=== PATIENT | male | born 1995 | race Caucasian/White ===

== ENCOUNTER 2018-05-09 02:40 | Emergency (ER) | payer BC, OTHER ==
[2018-05-09] MEDS ORDERED: Sodium Chloride 0.9% 1,000 ML IV ONE (03:12)
[2018-05-09] MEDS ORDERED: Ketorolac 30 MG/ML SDV IVPUSH ONE (03:12)
[2018-05-09] MEDS ORDERED: Sodium Chloride 0.9% 2.5 ML Syringe FLUSH PRN (03:12)
[2018-05-09] MEDS ORDERED: Ondansetron 4 MG/2 ML SDV IVPUSH ONE (03:12)
[2018-05-09] MEDS ORDERED: Morphine 2 MG/ML Syringe IVPUSH ONE (03:12)
[2018-05-09] MEDS ORDERED: Sodium Chloride 0.9% 10 ML Syringe FLUSH PRN (03:12)
--- NOTE | 2018-05-09 03:16 | EDM.PDOC ---
ED HPI GENERAL MEDICAL PROBLEM - General Chief Complaint: Flank Pain Stated Complaint: POSSIBLE APPENDICITIS Time Seen by Provider: 05/09/18 03:02 - History of Present Illness INITIAL COMMENTS - FREE TEXT/NARRATIVE: HISTORY AND PHYSICAL: History of present illness: The patient is a 23-year-old male with no significant GI or history and no abdominal surgical history who presents with sudden onset of right flank pain associated with nausea and vomiting about one hour ago. The patient not take anything at home for the pain and has not had any recent illnesses such as fever chills chest pain cough runny nose sore throat abdominal issues or diarrhea. He has no urinary complaints such as hematuria dysuria or frequency and has no testicular pain or swelling. He says the pain does not radiate and there is no right upper or right lower abdominal pain. He says the pain is deep and stabbing. He has never had anything like this before and he denies any recent trauma. He does not feel short of breath. The patient says the flank pain is not midline and his back nor does it radiate to his legs Review of systems: As per history of present illness and below otherwise all systems reviewed and negative. Past medical history: As per history of present illness and as reviewed below otherwise noncontributory. Surgical history: As per history of present illness and as reviewed below otherwise noncontributory. Social history: No reported history of drug or alcohol abuse. Family history: As per history of present illness and as reviewed below otherwise noncontributory. Physical exam: General: Well-developed well-nourished overweight man who is nontoxic and looks uncomfortable in the room. He seems restless and is holding his right side. Vital signs are noted by me HEENT: Atraumatic, normocephalic, pupils reactive, negative for conjunctival pallor or scleral icterus, mucous membranes moist, throat clear, neck supple, nontender, trachea midline. Lungs: Clear to auscultation, breath sounds equal bilaterally, chest nontender. No wheezing stridor or work of breathing Heart: S1S2, regular rate and rhythm no overt murmurs Abdomen: Soft, nondistended, nontender. I cannot reproduce the pain on palpation either in the abdomen or the flank and he has no specific right lower or right upper quadrant tenderness. Bowel sounds are hypoactive Negative for masses or hepatosplenomegaly. Negative for costovertebral tenderness. When I touch the skin of the right flank area the patient jumps in pain and is very hypersensitive. There are no rashes. Pelvis: Stable nontender. Genitourinary: Deferred. Rectal: Deferred. Extremities: Atraumatic, negative for cords or calf pain. Neurovascular unremarkable. Neuro: Awake, alert, oriented. Cranial nerves II through XII unremarkable. Cerebellum unremarkable. Motor and sensory unremarkable throughout. Exam nonfocal. Diagnostics: CBC CMP amylase lipase UA urine culture CT scan of the abdomen and pelvis Therapeutics: IV fluids Zofran Toradol morphine Flomax, urine strainers Patient feels significantly better and is aware of testing results. We will give him urine strainers as well as a dose of Flomax and meds for home including [place] and Zofran. The patient is aware that he is in the process of passing a small kidney stone but he is also aware that he has to more in his kidney that may pass at any time and he is advised to follow-up with Dr. Arreola. UA does have some bacteria and white cells so I will send a urine culture and give the patient a prescription for Cipro Impression: Right flank pain/right UVJ stone 1-2 mm, kidney stones Definitive disposition and diagnosis as appropriate pending reevaluation and review of above. right flank Pain Score (Numeric/FACES): 8 - Related Data Allergies Allergy/AdvReac Type Severity Reaction Status Date / Time Penicillins Allergy Cannot Verified 05/09/18 03:29 Remember Home Meds: Home Meds . [No Known Home Meds] 03/02/18 [History] Past Medical History - Past Health History Medical/Surgical History: Denies Medical/Surgical History Social & Family History - Family History Family Medical History: Noncontributory ED ROS GENERAL - Review of Systems Review Of Systems: ROS reveals no pertinent complaints other than HPI. ED EXAM, GENERAL - Physical Exam Exam: See Below (See dictation) Course - Vital Signs Last Recorded V/S: Last Vital Signs Temp 36.1 C 05/09/18 02:40 Pulse 84 05/09/18 02:40 Resp 20 05/09/18 02:40 BP 146/82 H 05/09/18 02:40 Pulse Ox 100 05/09/18 02:40 - Orders/Labs/Meds Orders: Active Orders 24 hr Category Date Time Status Communication Order [RC] STAT Care 05/09/18 04:55 Active Abdomen Pelvis wo Cont [CT] Stat Exams 05/09/18 03:12 Ordered CULTURE URINE [RM] Stat Lab 05/09/18 04:45 Received Sodium Chloride 0.9% [Saline Flush] Med 05/09/18 03:12 Active 10 ml FLUSH ASDIRECTED PRN Sodium Chloride 0.9% [Saline Flush] Med 05/09/18 03:12 Active 2.5 ml FLUSH ASDIRECTED PRN Saline Lock Insert [OM.PC] Stat Oth 05/09/18 03:11 Ordered Medication Orders Sodium Chloride (Saline Flush) 10 ml FLUSH ASDIRECTED PRN PRN Reason: Keep Vein Open Sodium Chloride (Saline Flush) 2.5 ml FLUSH ASDIRECTED PRN PRN Reason: Keep Vein Open Labs: Laboratory Tests 05/09/18 05/09/18 05/09/18 Range/Units 03:00 03:00 04:45 WBC 10.19 (4.0-11.0) K/uL RBC 5.07 (4.50-5.90) M/uL Hgb 15.2 (13.0-17.0) g/dL Hct 44.7 (38.0-50.0) % MCV 88.2 (80.0-98.0) fL MCH 30.0 (27.0-32.0) pg MCHC 34.0 (31.0-37.0) g/dL RDW Std Deviation 42.8 (28.0-62.0) fl RDW Coeff of Robin 13 (11.0-15.0) % Plt Count 245 (150-400) K/uL MPV 10.20 (7.40-12.00) fL Neut % (Auto) 51.4 (48.0-80.0) % Lymph % (Auto) 34.8 (16.0-40.0) % Chambers % (Auto) 10.5 (0.0-15.0) % Eos % (Auto) 2.9 (0.0-7.0) % Baso % (Auto) 0.4 (0.0-1.5) % Neut # (Auto) 5.2 (1.4-5.7) K/uL Lymph # (Auto) 3.6 H (0.6-2.4) K/uL Chambers # (Auto) 1.1 H (0.0-0.8) K/uL Eos # (Auto) 0.3 (0.0-0.7) K/uL Baso # (Auto) 0.0 (0.0-0.1) K/uL Nucleated RBC % 0.0 /100WBC Nucleated RBCs # 0 K/uL Sodium 141 (136-148) mmol/L Potassium 3.8 (3.5-5.1) mmol/L Chloride 105 (98-107) mmol/L Carbon Dioxide 29.9 (21.0-32.0) mmol/L BUN 20 H (7.0-18.0) mg/dL Creatinine 1.0 (0.8-1.3) mg/dL Est Cr Clr Drug Dosing TNP Estimated GFR (MDRD) > 60.0 ml/min Glucose 119 H (74-106) mg/dL Calcium 9.5 (8.5-10.1) mg/dL Total Bilirubin 0.3 (0.2-1.0) mg/dL AST 21 (15-37) IU/L ALT 49 (14-63) IU/L Alkaline Phosphatase 87 (46-116) U/L Total Protein 7.7 (6.4-8.2) g/dL Albumin 3.7 (3.4-5.0) g/dL Globulin 4.0 (2.6-4.0) g/dL Albumin/Globulin Ratio 0.9 (0.9-1.6) Amylase 63 (25-115) U/L Lipase 138 (73-393) U/L Urine Color DARK YELLOW Urine Appearance SLT CLOUDY Urine pH 6.0 (5.0-8.0) Ur Specific [place] >= 1.030 (1.001-1.035) Urine Protein NEGATIVE (NEGATIVE) mg/dL Urine Glucose (UA) NEGATIVE (NEGATIVE) mg/dL Urine Ketones NEGATIVE (NEGATIVE) mg/dL Urine Occult Blood LARGE H (NEGATIVE) Urine Nitrite NEGATIVE (NEGATIVE) Urine Bilirubin SMALL H (NEGATIVE) Urine Ictotest NEGATIVE Urine Urobilinogen 0.2 (<2.0) EU/dL Ur Leukocyte Esterase NEGATIVE (NEGATIVE) Urine RBC >100 (0-2/HPF) Urine WBC 4-6 (0-5/HPF) Ur Epithelial Cells RARE (NONE-FEW) Urine Bacteria 1+ H (NEGATIVE) Meds: Medications Generic Name Dose Route Start Last Admin Trade Name Freq PRN Reason Stop Dose Admin Sodium Chloride 10 ml 05/09/18 03:12 Saline Flush FLUSH ASDIRECTED PRN Keep Vein Open Sodium Chloride 2.5 ml 05/09/18 03:12 Saline Flush FLUSH ASDIRECTED PRN Keep Vein Open Discontinued Medications Generic Name Dose Route Start Last Admin Trade Name Freq PRN Reason Stop Dose Admin Sodium Chloride 1,000 mls @ 999 mls/hr 05/09/18 03:12 05/09/18 03:28 Normal Saline IV 05/09/18 04:12 999 mls/hr STAT ONE Administration Ketorolac Tromethamine 30 mg 05/09/18 03:12 05/09/18 03:30 Toradol IVPUSH 05/09/18 03:13 30 mg ONETIME ONE Administration Morphine Sulfate 4 mg 05/09/18 03:12 05/09/18 03:31 Morphine IVPUSH 05/09/18 03:13 4 mg ONETIME ONE Administration Ondansetron HCl 4 mg 05/09/18 03:12 05/09/18 03:29 Zofran IVPUSH 05/09/18 03:13 4 mg ONETIME ONE Administration Tamsulosin HCl 0.4 mg 05/09/18 04:55 05/09/18 05:03 Flomax PO 05/09/18 04:56 0.4 mg ONETIME ONE Administration Departure - Departure Time of Disposition: 05:08 Disposition: Home, Self-Care 01 Condition: Good Clinical Impression: Ureterolithiasis, Kidney stone - Discharge Information Referrals: PCP,None [Primary Care Provider] - Forms: ED Department Discharge Additional Instructions: The following information is given to patients seen in the emergency department who are being discharged to home. This information is to outline your options for follow-up care. We provide all patients seen in our emergency department with a follow-up referral. The need for follow-up, as well as the timing and circumstances, are variable depending upon the specifics of your emergency department visit. If you don't have a primary care physician on staff, we will provide you with a referral. We always advise you to contact your personal physician following an emergency department visit to inform them of the circumstance of the visit and for follow-up with them and/or the need for any referrals to a consulting specialist. The emergency department will also refer you to a specialist when appropriate. This referral assures that you have the opportunity for followup care with a specialist. All of these measure are taken in an effort to provide you with optimal care, which includes your followup. Under all circumstances we always encourage you to contact your private physician who remains a resource for coordinating your care. When calling for followup care, please make the office aware that this follow-up is from your recent emergency room visit. If for any reason you are refused follow-up, please contact the [facility] emergency department at and ask to speak to the emergency department charge nurse. [facility] [address] [place] [address] [phone] Push hydration and avoid caffeinated products. Please take all medications as prescribed. Please strain your urine looking for your kidney stone as we discussed and please schedule an appointment with our urologist Dr. Arreola next week for reevaluation and further care. Return to ER as needed and as discussed You have been given Zofran Percocet Flomax and ciprofloxacin via [facility] Med[facility] - My Orders Last 24 Hours: My Active Orders 05/09/18 03:11 Saline Lock Insert [OM.PC] Stat 05/09/18 03:12 Abdomen Pelvis wo Cont [CT] Stat Sodium Chloride 0.9% [Saline Flush] 10 ml FLUSH ASDIRECTED PRN Sodium Chloride 0.9% [Saline Flush] 2.5 ml FLUSH ASDIRECTED PRN 05/09/18 04:45 CULTURE URINE [RM] Stat 05/09/18 04:55 Communication Order [RC] STAT - Assessment/Plan Last 24 Hours: My Active Orders 05/09/18 03:11 Saline Lock Insert [OM.PC] Stat 05/09/18 03:12 Abdomen Pelvis wo Cont [CT] Stat Sodium Chloride 0.9% [Saline Flush] 10 ml FLUSH ASDIRECTED PRN Sodium Chloride 0.9% [Saline Flush] 2.5 ml FLUSH ASDIRECTED PRN 05/09/18 04:45 CULTURE URINE [RM] Stat 05/09/18 04:55 Communication Order [RC] STAT
[2018-05-09 03:36] LABS: CHLORIDE,CL 105 mmol/L (98-107); SODIUM,NA 141 mmol/L (136-148)
[2018-05-09] MEDS ORDERED: Tamsulosin 0.4 MG Cap.ER PO ONE (04:55)
--- NOTE | 2018-05-10 19:24 | CT ---
EXAM DATE: 05/09/18 PATIENT'S AGE: 23 Patient: ELYSSA LAGUNA Facility: [place], [place] Site . Site : 1995 Study: CT Abdomen/Pelvis -05/09/2018 3:50:14 AM Ordering Physician: Danielito Metz Final Report: INDICATION: Right flank pain. TECHNIQUE: CT Abdomen and pelvis without i.v. contrast. Coronal and sagittal reformats were obtained. COMPARISON: None FINDINGS: Lower chest: Unremarkable. Liver: Unremarkable. Spleen: Unremarkable. Pancreas: Unremarkable. Gallbladder: Unremarkable. Kidney: There is a 1-2 mm stone seen in the right ureterovesicular junction with mild right hydroureter and mild right renal pelvicaliectasis. There are 2 punctate 1 mm stones present in the midzone of the right kidney. Left kidney is unremarkable in appearance. The appendix is not visualized. Adrenal: Unremarkable. Bowel: Unremarkable. Vascular: Unremarkable. Lymph: Unremarkable. Peritoneum: Unremarkable. No pneumoperitoneum is seen. No significant ascites is noted. Pelvis: Unremarkable. Soft tissue: Unremarkable. Bone: Unremarkable for age. IMPRESSION: 1. There is a 1-2 mm stone seen in the right ureterovesicular junction with mild right hydroureter and mild right renal pelvicaliectasis. Dictated by Oleg Lee MD @ 05/09/2018 4:47:36 AM Please note that all CT scans at this facility use dose modulation, iterative reconstruction, and/or weight-based dosing when appropriate to reduce radiation dose to as low as reasonably achievable. Dictated by: Oleg Lee MD @ 05/09/2018 04:47:39 (Electronic Signature) Report Signed by Proxy. [facility]
== END 2018-05-09 05:30 | disposition home or self-care (01) ==
LOC: MW.ED 02:40
DX: N20.2 Calculus of kidney with calculus of ureter (principal); N13.4 Hydroureter; Z88.0 Allergy status to penicillin
CPT/HCPCS: 74176; 80053; 81001; 82150; 83690; 85025; 87086; 96361; 96374; 96375; 99284; A9270; J1885; J2270; J2405; J7040; 99283

== ENCOUNTER 2018-06-12 18:22 | Emergency (ER) | payer BC ==
--- NOTE | 2018-06-12 18:33 | EDM.PDOC ---
ED HPI GENERAL MEDICAL PROBLEM - General Chief Complaint: General Stated Complaint: COUGH/FEELING SICK Time Seen by Provider: 06/12/18 18:24 Source of Information: Reports: Patient History Limitations: Reports: No Limitations - History of Present Illness INITIAL COMMENTS - FREE TEXT/NARRATIVE: HISTORY AND PHYSICAL: History of present illness: Patient is a 23-year-old male who presents to the emergency room today with complaints of cough, subjective fevers, and body aches 4 days. He states he is eating and drinking appropriately although has a decreased appetite. He denies any chest pain, shortness of breath, abdominal pain, nausea, vomiting, diarrhea or constipation. He has an occasional smoker. Has not received an influenza vaccine this year. Review of systems: As per history of present illness and below otherwise all systems reviewed and negative. Past medical history: As per history of present illness and as reviewed below otherwise noncontributory. Surgical history: As per history of present illness and as reviewed below otherwise noncontributory. Social history: See social history for further information Family history: As per history of present illness and as reviewed below otherwise noncontributory. Physical exam: General: Well-developed and well-nourished 23-year-old male. Alert and oriented. Nontoxic appearing and in no acute distress HEENT: Atraumatic, normocephalic, pupils equal and reactive bilaterally, negative for conjunctival pallor or scleral icterus, mucous membranes moist, TMs normal bilaterally, throat mild erythematous without exudate or soft tissue swelling, neck supple, nontender, trachea midline. No drooling or trismus noted. No meningeal signs. No hot potato voice noted. Lungs: Diminished throughout auscultation, breath sounds equal bilaterally, chest nontender. Heart: S1S2, regular rate and rhythm without overt murmur Abdomen: Soft, nondistended, nontender. Negative for masses or hepatosplenomegaly. Negative for costovertebral tenderness. Pelvis: Stable nontender. Genitourinary: Deferred. Rectal: Deferred. Skin: Intact, warm, dry. No lesions or rashes noted. Extremities: Atraumatic, negative for cords or calf pain. Neurovascular unremarkable. Neuro: Awake, alert, oriented. Cranial nerves II through XII unremarkable. Cerebellum unremarkable. Motor and sensory unremarkable throughout. Exam nonfocal. Notes: Influenza screening is positive. Patient is out of the window for Tamiflu. Supportive care measures were reviewed and discussed. Encouraged him to follow standard contact precautions while around others. Voices understanding and is agreeable to plan of care. Denies any further questions or concerns at this time. Diagnostics: Influenza, chest x-ray Therapeutics: None Prescription: Phenergan with codeine Impression: Influenza Plan: 1. Standard contact precautions (covering mouth while coughing, avoid sharing drinking cups and eating utensils). Please make sure you're doing good handwashing as this is contagious. 2. Encourage small frequent sips of fluids to prevent dehydration. 3. Supportive care measures such as Tylenol and/or ibuprofen for pain and fever management. 4. 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 Return to the ED as needed and as discussed. Definitive disposition and diagnosis as appropriate pending reevaluation and review of above. - Related Data Allergies Allergy/AdvReac Type Severity Reaction Status Date / Time Penicillins Allergy Cannot Verified 05/09/18 03:29 Remember Home Meds: Home Meds . [No Known Home Meds] 03/02/18 [History] Past Medical History - Past Health History Medical/Surgical History: Denies Medical/Surgical History Social & Family History - Family History Family Medical History: Noncontributory - Tobacco Use Smoking Status *Q: Light Tobacco Smoker Years of Tobacco use: 4 Packs/Tins Daily: 0.1 - Recreational Drug Use Recreational Drug Use: No ED ROS GENERAL - Review of Systems Review Of Systems: ROS reveals no pertinent complaints other than HPI. ED EXAM, GENERAL - Physical Exam Exam: See Below (See dictation) Course - Vital Signs Last Recorded V/S: Last Vital Signs Temp 98.4 F 06/12/18 18:30 Pulse 97 06/12/18 18:30 Resp 18 06/12/18 18:30 BP 165/79 H 06/12/18 18:30 Pulse Ox 95 06/12/18 18:30 - Orders/Labs/Meds Orders: Active Orders 24 hr Category Date Time Status Chest 2V [CR] Stat Exams 06/12/18 18:34 Taken Departure - Departure Time of Disposition: 19:14 Disposition: Home, Self-Care 01 Clinical Impression: Influenza A - Discharge Information Instructions: Influenza, Adult, [id number] Referrals: PCP,None [Primary Care Provider] - Forms: ED Department Discharge Additional Instructions: The following information is given to patients seen in the emergency department who are being discharged to home. This information is to outline your options for follow-up care. We provide all patients seen in our emergency department with a follow-up referral. The need for follow-up, as well as the timing and circumstances, are variable depending upon the specifics of your emergency department visit. If you don't have a primary care physician on staff, we will provide you with a referral. We always advise you to contact your personal physician following an emergency department visit to inform them of the circumstance of the visit and for follow-up with them and/or the need for any referrals to a consulting specialist. The emergency department will also refer you to a specialist when appropriate. This referral assures that you have the opportunity for follow-up care with a specialist. All of these measure are taken in an effort to provide you with optimal care, which includes your follow-up. Under all circumstances we always encourage you to contact your private physician who remains a resource for coordinating your care. When calling for follow-up care, please make the office aware that this follow-up is from your recent emergency room visit. If for any reason you are refused follow-up, please contact the [facility] Emergency Department at and asked to speak to the emergency department charge nurse. [facility] [address] [place] [id number] [place] [address] 1. Standard contact precautions (covering mouth while coughing, avoid sharing drinking cups and eating utensils). Please make sure you're doing good handwashing as this is contagious. 2. Encourage small frequent sips of fluids to prevent dehydration. 3. Supportive care measures such as Tylenol and/or ibuprofen for pain and fever management. 4. 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 Return to the ED as needed and as discussed. - My Orders Last 24 Hours: My Active Orders 02/16/19 18:34 Chest 2V [CR] Stat - Assessment/Plan Last 24 Hours: My Active Orders 06/12/18 18:34 Chest 2V [CR] Stat
--- NOTE | 2018-06-12 20:18 | CR ---
INDICATION: Pain, shortness of breath TECHNIQUE: Chest 2 views. COMPARISON: None FINDINGS: Cardiovascular and mediastinum: Heart size and vasculature are normal in caliber and appearance. Mediastinum is within normal limits. Lungs and pleural spaces: Lungs are clear. No sign of infiltrate or mass. No sign of pleural effusion. No pneumothorax. Bones and soft tissues: No significant findings. IMPRESSION: Unremarkable chest. Dictated by Dimitris Gordon MD @ Jun 12 2018 8:15PM Signed by Dr. Dimitris Gordon @ Jun 12 2018 8:16PM
== END 2018-06-12 19:25 | disposition home or self-care (01) ==
LOC: MW.ED 18:22
DX: J10.1 Influenza due to other identified influenza virus with other respiratory manifestations (principal); F17.210 Nicotine dependence, cigarettes, uncomplicated; Z88.0 Allergy status to penicillin
CPT/HCPCS: 71046; 71046-26; 87804; 99283

== ENCOUNTER 2024-01-19 09:23 | Emergency (ER) | payer SELFPAY ==
[2024-01-19] MEDS ORDERED: Sodium Chloride 0.9% 10 ML Syringe FLUSH PRN (09:28)
[2024-01-19] MEDS ORDERED: Sodium Chloride 0.9% 2.5 ML Syringe FLUSH PRN (09:28)
[2024-01-19 09:45] LABS: BASOPHILS ABSOLUTE AUTO 0.08 K/uL (0.00-0.20); BASOPHILS PERCENT AUTO 0.8 % (0.0-1.0); EOSINOPHILS ABSOLUTE AUTO 0.16 K/uL (0.00-0.45); EOSINOPHILS PERCENT AUTO 1.7 % (0.0-6.0); HEMATOCRIT 48.4 % (42.0-52.0); HEMOGLOBIN 16.6 g/dL (14.0-18.0); IMMATURE GRAN ABSOLUTE AUTO 0.04 K/uL (0.00-0.05); IMMATURE GRAN PERCENT AUTO 0.4 % (0.0-0.4); LYMPHOCYTES ABSOLUTE AUTO 2.74 K/uL (1.00-4.80); LYMPHOCYTES PERCENT AUTO 28.8 % (24.0-44.0); MEAN CORPUSCULAR HEMOGLOBIN 29.4 pg (28.0-32.0); MEAN CORPUSCULAR HGB CONC 34.3 g/dL (32.0-36.0); MEAN CORPUSCULAR VOLUME 85.8 fL (83.0-99.0); MEAN PLATELET VOLUME 9.9 fL (9.4-12.4); MONOCYTES ABSOLUTE AUTO 0.87 K/uL (0.00-0.80); MONOCYTES PERCENT AUTO 9.1 % (0.0-8.0); NEUTROPHILS ABSOLUTE AUTO 5.63 K/uL (1.80-7.70); NEUTROPHILS PERCENT AUTO 59.2 % (41.0-71.0); PLATELET COUNT,PLT 298 K/uL (150-400); RED BLOOD CELL COUNT 5.64 M/uL (4.52-5.90); WHITE BLOOD CELL COUNT,WBC 9.52 K/uL (3.9-11.3)
[2024-01-19 10:23] LABS: ALBUMIN 4.2 g/dL (3.4-5.0); BILIRUBIN TOTAL 0.7 mg/dL (0.2-1.0); CALCIUM 9.7 mg/dL (8.5-10.1); CARBON DIOXIDE,CO2 28.7 mmol/L (21.0-32.0); EST CRCL DRUG DOSING (CG) 137.43 mL/min; PROTEIN TOTAL,TP 8.2 g/dL (6.4-8.2)
== END 2024-01-19 11:44 | disposition home or self-care (01) ==
LOC: MW.ED 09:23
DX: R07.9 Chest pain, unspecified (principal); R55 Syncope and collapse; I10 Essential (primary) hypertension; F17.200 Nicotine dependence, unspecified, uncomplicated; Z88.0 Allergy status to penicillin; Z75.8 Other problems related to medical facilities and other health care
CPT/HCPCS: 36415; 71045; 71045-26; 80053; 84484; 85025; 93005; 99285